=== PATIENT | male | born 1995 | race Caucasian/White ===

== ENCOUNTER 2020-10-02 16:18 | Emergency (ER) | payer BC, MEDICAID ==
[~2020-10-02] VITALS: Ht 182.9 cm; Wt 90.7 kg
[2020-10-02] MEDS ORDERED: SODIUM CHLORIDE 0.9% 1,000 ML IVB ONE (19:15)
[2020-10-02 20:02] LABS: Basophils # (auto) 0 10 ^3/uL (0-0.2); Basophils % (auto) 0.4 % (0.0-2.0); Eosinophils # (auto) 0 10 ^3/uL (0-0.8); Eosinophils % (auto) 0.2 % (0.0-7.0); Hemoglobin 14.4 g/dL (13.5-17.5); Lymphocytes # (auto) 0.6 10 ^3/uL (0.4-5.4); Lymphocytes % (auto) 7.4 % (10.0-50.0); Mean Corpuscular Hemoglobin 29.2 pg (28.0-32.0); Mean Corpuscular Hgb Conc. 33.5 g/dL (32.0-36.0); Mean Corpuscular Volume 87.1 fL (80.0-100.0); Monocytes # (auto) 0.6 10 ^3/uL (0-1.3); Monocytes % (auto) 7.6 % (0.0-12.0); Neutrophils # (auto) 6.7 10 ^3/uL (1.6-8.6); Neutrophils % (auto) 84.4 % (37.0-80.0); Red Blood Cells 4.94 10^6/uL (4.5-5.90); Red Cell Distribution Width 16.1 % (11.8-14.3)
[2020-10-02 20:24] LABS: Alanine Aminotransferase 156 U/L (16-61); Albumin 3.7 g/dL (3.4-5.0); Anion Gap 3 (5-15); Blood Urea Nitrogen 7 mg/dL (7-18); Carbon Dioxide 30 mmol/L (21-32); Chloride 108 mmol/L (98-107); Glucose 96 mg/dL (74-106); Magnesium 2.2 mg/dL (1.6-2.6); Potassium 4.3 mmol/L (3.5-5.1); Sodium 141 mmol/L (136-145)
[2020-10-02 20:25] LABS: Salicylate < 1.7 mg/dL (2.8-20.0)
[2020-10-02 20:27] LABS: Alkaline Phosphatase 111 U/L (45-117); Aspartate Aminotransferase 104 U/L (15-37); BUN/Creatinine Ratio 6.8; Bilirubin, Total 2.5 mg/dL (0.2-1.0); Blood Alcohol < 3.0 mg/dL (0-5); GFR African American 115 mL/min; GFR Non-African American 95 mL/min
[2020-10-02 20:29] LABS: Acetaminophen < 2.0 ug/mL (10-30)
[2020-10-03 01:45] VITALS: BP 98/53
== END 2020-10-03 05:27 | disposition home or self-care (01) ==
LOC: EDBD 16:18 → ER 16:18
DX: T40.411A Poisoning by fentanyl or fentanyl analogs, accidental (unintentional), initial encounter (principal); R74.01 Elevation of levels of liver transaminase levels; F17.210 Nicotine dependence, cigarettes, uncomplicated; Z59.0 Homelessness; Y92.89 Other specified places as the place of occurrence of the external cause
CPT/HCPCS: 36415; 71046; 80053; 80320; 80329; 83605; 83735; 85025; 87040; 93005